=== PATIENT | female | born 1970 | race Caucasian/White ===

== ENCOUNTER → 2022-06-06 09:05 | Outpatient (CLI) | payer OTHER, SELFPAY ==
--- NOTE | 2022-06-06 | DI.MRI.S_ITS ---
PROCEDURE: MR THORACIC SPINE WO CON INDICATIONS: THORACIC SPINE PAIN TECHNIQUE: Noncontrast sagittal T1 spine echo and T2 fast spin echo, sagittal STIR, and T2 fast spin echo through the thoracic spine. COMPARISON: None. FINDINGS: Image quality: Excellent. Alignment and Curvature: There is normal bony alignment. Bone Marrow: Marrow is of normal overall signal. No acute vertebral body compression fractures. Spinal Cord: Visualized spinal cord is normal in size and signal. Paraspinous Soft Tissues: No paravertebral masses. Miscellaneous: On axial images, central canal and foramina appear widely patent at all scanned levels. IMPRESSION: Unremarkable thoracic spine MR. No canal stenosis or foraminal stenosis. Dictated by: Casey Atkins M.D. on 06/08/2022 at 8:34 Approved by: Casey Atkins M.D. on 06/08/2022 at 8:37
== END ==
PROVIDERS: PCP Physician Assistant; Referring Provider Physician Assistant Surgical; Visit Provider Physician Assistant Surgical
DX: M54.14 Radiculopathy, thoracic region (principal); M54.6 Pain in thoracic spine
CPT/HCPCS: 72146